=== PATIENT | female | born 1975 | race Caucasian/White ===

== ENCOUNTER 2018-01-24 22:44 | Emergency (ER) | payer BC ==
[2018-01-24] MEDS ORDERED: IBUPROFEN 600 MG TAB PO STA (23:02)
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
--- NOTE | 2018-01-24 23:31 | XR ---
EXAMINATION TYPE: XR wrist complete LT DATE OF EXAM: 01/24/2018 COMPARISON: NONE HISTORY: Wrist pain TECHNIQUE: 4 views FINDINGS: I see no fracture nor dislocation. Joint spaces are fairly normal. Scaphoid appears normal. IMPRESSION: Negative left wrist exam.
[2018-01-25 00:04] VITALS: BP 117/65; PULSE 78; RESP 15; TEMP 98.7
== END 2018-01-25 00:03 | disposition home or self-care (01) ==
LOC: EC 22:44
DX: S60.512A Abrasion of left hand, initial encounter (principal); S60.511A Abrasion of right hand, initial encounter; S69.92XA Unspecified injury of left wrist, hand and finger(s), initial encounter; E07.9 Disorder of thyroid, unspecified; Z79.899 Other long term (current) drug therapy; W01.0XXA Fall on same level from slipping, tripping and stumbling without subsequent striking against object, initial encounter; Y93.02 Activity, running; Y92.009 Unspecified place in unspecified non-institutional (private) residence as the place of occurrence of the external cause
CPT/HCPCS: 29125; 99283